=== PATIENT | female | born 1960 | race Caucasian/White ===

== ENCOUNTER → 2018-09-26 | Outpatient (CLI) | payer BC, OTHER | LOC: MRI 11:03 | DX: G35 Multiple sclerosis (principal); M50.323 Other cervical disc degeneration at C6-C7 level ==

== ENCOUNTER → 2021-06-29 | Outpatient (CLI) | payer BC, OTHER | LOC: MRI 08:50 | PROVIDERS: ATTEND Internal Medicine | DX: M50.123 Cervical disc disorder at C6-C7 level with radiculopathy (principal); M48.02 Spinal stenosis, cervical region; G35 Multiple sclerosis; G95.89 Other specified diseases of spinal cord; M40.40 Postural lordosis, site unspecified; M47.814 Spondylosis without myelopathy or radiculopathy, thoracic region; M40.294 Other kyphosis, thoracic region; M51.84 Other intervertebral disc disorders, thoracic region ==